=== PATIENT | female | born 1970 | race Caucasian/White ===

== ENCOUNTER 2017-07-26 12:24 | Emergency (ER) | payer OTHER ==
[~2017-07-26] VITALS: Ht 160 cm; Wt 88.3 kg
[~2017-07-26 12:24] MED LIST: ALBU0.08 NEB; IPRA0.02 NEB; MUCI30TA2 PO; PRED20 PO; ZITHTAB PO
[2017-07-26 12:26] VITALS: BP 143/75; PULSE 76; RESP 16; TEMP 98.1; O2SAT 97
[2017-07-26] MEDS ORDERED: LEVO25TA4 PO (12:41)
[2017-07-26] MEDS ORDERED: MOME16.7 INH (12:41)
[2017-07-26 12:55] VITALS: O2SAT 98
--- NOTE | 2017-07-26 12:58 | PD ---
HPI Chief Complaint: Abdominal Pain Time Seen by Provider: 12:34 Travel History International Travel<30 days: No Contact w/Intl Traveler<30days: No Traveled to known affect area: No History of Present Illness HPI 47yo M presents to the ED with c/o left lower abdominal pain for 1 week. States pain is intermittent and has been associated with nausea for last 2 days. Sometimes different positions make it better or worst. Also with foul smelling and cloudy urine. Denies any fever, chest pain, sob, vomiting, focal weakness or numbness, vaginal bleeding or discharge. Denies history of ovarian cyst or nephrolithiasis. Said she gets her menstrual period once a year, maybe perimenopausal. PFSH Past Medical History Hx Anticoagulant Therapy: No COPD: Yes Diabetes: No Diminished Hearing: No Respiratory: Yes (COPD) Immunizations Current: No Tetanus Vaccination: < 5 Years Influenza Vaccination: No ?: Not LMP: 1 IN A YEAR Tubal Ligation: Yes Past Surgical History Section: Yes Social History Alcohol Use: No Tobacco Use: Yes (1 ppd) Substance Use: No Allergies-Medications (Allergen,Severity, Reaction): Coded Allergies: Sulfa (Sulfonamide Antibiotics) (Verified Allergy, Intermediate, RASH/ ITCHING, 07/26/17) Reported Meds & Prescriptions Reported Meds & Active Scripts Active Ipratropium Neb (Ipratropium [place]) 0.5 Mg/2.5 Ml Amp 0.5 Mg NEB Q4HR NEB 30 Days Albuterol Neb (Albuterol Sulfate) 2.5 Mg/3 Ml Neb 2.5 Mg NEB Q4HR NEB 30 Days While awake Reported Levothyroxine (Levothyroxine Sodium) 25 Mcg Tab 25 Mcg PO DAILY Asmanex Hfa 13 GM Inh (Mometasone 13 GM Inh) 100 Mcg/Act Inh 2 Puff INH BID Review of Systems Except as stated in HPI: all other systems reviewed are Neg Physical Exam Narrative GENERAL: 47yo F in moderate distress. SKIN: Focused skin assessment warm/dry. HEAD: Atraumatic. Normocephalic. CARDIOVASCULAR: Regular rate and rhythm. No murmur appreciated. RESPIRATORY: No accessory muscle use. Clear to auscultation. Breath sounds equal bilaterally. GASTROINTESTINAL: Abdomen soft, non-tender, nondistended. No rebound tenderness or guarding. MUSCULOSKELETAL: No obvious deformities. No clubbing. No cyanosis. No edema. NEUROLOGICAL: Awake and alert. No obvious cranial nerve deficits. Motor grossly within normal limits. Normal speech. PSYCHIATRIC: Appropriate mood and affect; insight and judgment normal. Data Data Last Documented VS Vital Signs Date Time Temp Pulse Resp B/P (MAP) Pulse Ox O2 Delivery O2 Flow Rate FiO2 07/26/17 14:17 67 18 112/72 (85) 97 Room Air 07/26/17 12:26 98.1 Orders Orders Complete Blood Count With Diff (07/26/17 12:53) Comprehensive Metabolic Panel (07/26/17 12:53) Lipase (07/26/17 12:53) Prothrombin Time / Inr (Pt) (07/26/17 12:53) Act Partial Throm Time (Ptt) (07/26/17 12:53) Urinalysis - C+S If Indicated (07/26/17 12:53) Ct Abd/Pel W Iv Contrast(Rout) (07/26/17 12:53) Iv Access Insert/Monitor (07/26/17 12:53) Ecg Monitoring (07/26/17 12:53) Oximetry (07/26/17 12:53) Sodium Chloride 0.9% Flush (Ns Flush) (07/26/17 13:00) Ed Urine Pregnancytest Poc (07/26/17 12:53) Ketorolac Inj (Toradol Inj) (07/26/17 13:00) Ondansetron Inj (Zofran Inj) (07/26/17 13:00) Iohexol 350 Inj (Omnipaque 350 Inj) (07/26/17 13:40) Labs Laboratory Tests Test 07/26/17 12:45 White Blood Count 7.7 TH/MM3 Red Blood Count 5.37 MIL/MM3 Hemoglobin 15.0 GM/DL Hematocrit 45.1 % Mean Corpuscular Volume 84.0 FL Mean Corpuscular Hemoglobin 27.9 PG Mean Corpuscular Hemoglobin Concent 33.2 % Red Cell Distribution Width 14.3 % Platelet Count 278 TH/MM3 Mean Platelet Volume 8.2 FL Neutrophils (%) (Auto) 53.9 % Lymphocytes (%) (Auto) 33.9 % Monocytes (%) (Auto) 7.2 % Eosinophils (%) (Auto) 3.0 % Basophils (%) (Auto) 2.0 % Neutrophils # (Auto) 4.1 TH/MM3 Lymphocytes # (Auto) 2.6 TH/MM3 Monocytes # (Auto) 0.6 TH/MM3 Eosinophils # (Auto) 0.2 TH/MM3 Basophils # (Auto) 0.2 TH/MM3 CBC Comment DIFF FINAL Differential Comment Prothrombin Time 10.3 SEC Prothromb Time International Ratio 0.9 RATIO Activated Partial Thromboplast Time 25.4 SEC Urine Collection Type CLEAN CATCH Urine Color YELLOW Urine Turbidity CLEAR Urine pH 6.0 Urine Specific [place] 1.019 Urine Protein NEG mg/dL Urine Glucose (UA) NEG mg/dL Urine Ketones NEG mg/dL Urine Occult Blood NEG Urine Nitrite NEG Urine Bilirubin NEG Urine Leukocyte Esterase NEG Urine WBC 0-2 /hpf Urine Squamous Epithelial Cells 0-5 /hpf Microscopic Urinalysis Comment CULT NOT INDICATED Urine Collection Time 12:45 Blood Urea Nitrogen 14 MG/DL Creatinine 0.85 MG/DL Random Glucose 90 MG/DL Total Protein 8.1 GM/DL Albumin 3.8 GM/DL Calcium Level 9.3 MG/DL Alkaline Phosphatase 128 U/L Aspartate Amino Transf (AST/SGOT) 29 U/L Alanine Aminotransferase (ALT/SGPT) 44 U/L Total Bilirubin 0.4 MG/DL Sodium Level 139 MEQ/L Potassium Level 4.2 MEQ/L Chloride Level 107 MEQ/L Carbon Dioxide Level 26.7 MEQ/L Anion Gap 5 MEQ/L Estimat Glomerular Filtration Rate 72 ML/MIN Lipase 177 U/L [facility] Medical Decision Making Medical Screen Exam Complete: Yes Emergency Medical Condition: Yes Differential Diagnosis Nephrolithiasis vs. pyelonephritis vs. diverticulitis Narrative Course 47yo F with lower abdominal pain for 1 week. Pt states it is better in certain positions and intermittent. Urine negative. Labs reviewed, no leukocytosis. CMP unremarkable. Lipase normal. UA showed no blood or nitrite or leukocyte. CT a/p showed no acute CT findings in the abdomen or pelvis. Pt given toradol which helped with the pain. Return precautions given. Diagnosis Primary Impression: Abdominal pain Qualified Codes: R10.32 - Left lower quadrant pain Patient Instructions: General Instructions Departure Forms: Tests/Procedures Additional Instructions: Please follow up with your PMD and [facility] as an outpatient. Return to the ED if symptoms worsen. Med/Other Pt SpecificInfo: Prescription(s) given Scripts Acetaminophen (Tylenol) 325 Mg Tab 650 MG PO Q6H Y for PAIN SCALE 1 TO 4, #20 TAB 0 Refills Prov: Nkechi Dangelo DO 07/26/17 Disposition: 01 DISCHARGE HOME Condition: Stable Nkechi Dangelo DO Jul 26, 2017 12:58
[2017-07-26] MEDS ORDERED: KETOROLAC TROMETHAMINE 30 MG/ML (IVP) VIAL IV PUSH ONE (13:00)
[2017-07-26] MEDS ORDERED: ONDANSETRON HCL 4 MG/2 ML VIAL IV PUSH ONE (13:00)
[2017-07-26] MEDS ORDERED: SODIUM CHLORIDE 0.9% FLUSH 10 ML FLUSH IV FLUSH PRN (13:00)
[2017-07-26 13:05] LABS: AUTOMATED NEUTROPHIL # 4.1 TH/MM3 (1.8-7.7); BASOPHIL # 0.2 TH/MM3 (0-0.2); EOSINOPHIL # 0.2 TH/MM3 (0-0.4); HEMATOCRIT 45.1 % (35.0-46.0); HEMO FLAGS DIFF FINAL; LYMPH % 33.9 % (9.0-44.0); LYMPHOCYTE # 2.6 TH/MM3 (1.0-4.8); MEAN CORPUSCULAR HEMOGLOBIN 27.9 PG (27.0-34.0); MEAN CORPUSCULAR HGB CONC 33.2 % (32.0-36.0); MONO % 7.2 % (0.0-8.0); NEUT % 53.9 % (16.0-70.0); PLATELET COUNT 278 TH/MM3 (150-450); RED BLOOD COUNT 5.37 MIL/MM3 (4.00-5.30); RED CELL DISTRIBUTION WIDTH 14.3 % (11.6-17.2); WHITE BLOOD COUNT 7.7 TH/MM3 (4.0-11.0)
[2017-07-26 13:06] LABS: BLOOD, URINE NEG (NEG); GLUCOSE,URINE NEG (NEG); KETONE, URINE NEG (NEG); NITRITE,URINE NEG (NEG)
[2017-07-26 13:12] LABS: COMMENT (UR) CULT NOT INDICATED; CULTURE IF INDICATED CULT NOT INDICATED; METHOD OF COLLECTION CLEAN CATCH; SQUAMOUS EPITHELIAL CELL URINE 0-5 /hpf (0-5); URINE COLOR YELLOW (YELLW/STRAW); WBC, URINE 0-2 /hpf (0-5)
[2017-07-26 13:16] LABS: CHLORIDE 107 MEQ/L (98-107); POTASSIUM 4.2 MEQ/L (3.5-5.1); SODIUM (NA) 139 MEQ/L (136-145)
[2017-07-26 13:20] LABS: APTT (PATIENT) 25.4 SEC (24.3-30.1); INTERNATIONAL NORMALIZED RATIO 0.9 RATIO; PROTHROMBIN TIME - PATIENT 10.3 SEC (9.8-11.6)
[2017-07-26 13:21] LABS: ANION GAP 5 MEQ/L (5-15); BICARBONATE 26.7 MEQ/L (21.0-32.0); BLOOD UREA NITROGEN 14 MG/DL (7-18)
[2017-07-26 13:24] LABS: ALT (GPT) 44 U/L (10-53); AST (GOT) 29 U/L (15-37); GLOMERULAR FILTRATION RATE 72 ML/MIN (>89)
[2017-07-26 13:25] LABS: TOTAL BILIRUBIN ADULT 0.4 MG/DL (0.2-1.0)
[2017-07-26 13:26] VITALS: BP 107/68; PULSE 76; RESP 18; O2SAT 97
[2017-07-26 13:27] LABS: ALKALINE PHOSPHATASE 128 U/L (45-117)
[2017-07-26] MEDS ORDERED: IOHEXOL 350 MG/ML 10 ML VIAL (for RAD DIAG) IVCONTRAST ONE (13:40)
--- NOTE | 2017-07-26 13:56 | RADRPT ---
EXAM DATE/TIME: 07/26/2017 13:33 [facility] COMPARISON: CT ABDOMEN & PELVIS W/O CONTRAST, July 06, 2013, 13:23. INDICATIONS : Left lower quadrant pain. Nausea. IV CONTRAST: 85 cc Omnipaque 350 (iohexol) IV ORAL CONTRAST: No oral contrast ingested. RADIATION DOSE: 15.83 CTDIvol (mGy) MEDICAL HISTORY : Chronic obstructive pulmonary disease. SURGICAL HISTORY : Tubal ligation. section. ENCOUNTER: Initial ACUITY: 1 week PAIN SCALE: 7/10 LOCATION: Left lower quadrant TECHNIQUE: Volumetric scanning of the abdomen and pelvis was performed. Using automated exposure control and ad justment of the mA and/or kV according to patient size, radiation dose was kept as low as reasonably achievable to obtain optimal diagnostic quality images. DICOM format image data is available electro nically for review and comparison. FINDINGS: LOWER LUNGS: The visualized lower lungs are clear. LIVER: Homogeneous density without lesion. There is no dilation of the biliary tree. No calcified gallston es. SPLEEN: Normal size without lesion. Tiny adjacent splenule anteriorly PANCREAS: Within normal limits. KIDNEYS: Normal in size and shape. There is no mass, stone or hydronephrosis. ADRENAL GLANDS: Within normal limits. VASCULAR: There is no aortic aneurysm. BOWEL/MESENTERY: Distal colonic diverticula. No evidence of abnormal dilatation, wall thickening or focal inflammatory change. ABDOMINAL WALL: Within normal limits. RETROPERITONEUM: There is no lymphadenopathy. BLADDER: No wall thickening or mass. REPRODUCTIVE: Within normal limits. INGUINAL: There is no lymphadenopathy or hernia. MUSCULOSKELETAL: Within normal limits for patient age. CONCLUSION: No acute CT findings in the abdomen or pelvis. Esa Rachel MD on July 26, 2017 at 13:49 Board Certified Radiologist. This report was verified electronically.
[2017-07-26 14:17] VITALS: BP 112/72; PULSE 67; RESP 18; O2SAT 97
[2017-07-26] MEDS ORDERED: TYLE325T PO (14:57)
== END 2017-07-26 15:21 | disposition home or self-care (01) ==
LOC: PHED 12:24
DX: R10.32 Left lower quadrant pain (principal); J44.9 Chronic obstructive pulmonary disease, unspecified
CPT/HCPCS: 74177; 80053; 81001; 83690; 84703; 85025; 85610; 85730; 96374; 96375; 99285; J1885; J2405; Q9967